=== PATIENT | male | born 1955 | race Caucasian/White ===

== ENCOUNTER 2023-09-07 12:20 | Outpatient (CLI) | payer MEDICARE, OTHER | END 2023-09-07 23:59 | disposition home or self-care (01) | LOC: MRI 12:20 | PROVIDERS: ATTEND Pediatrics Sports Medicine | DX: S76.312A Strain of muscle, fascia and tendon of the posterior muscle group at thigh level, left thigh, initial encounter (principal); M16.11 Unilateral primary osteoarthritis, right hip; M25.451 Effusion, right hip; M25.751 Osteophyte, right hip; M25.551 Pain in right hip; M46.1 Sacroiliitis, not elsewhere classified; N43.3 Hydrocele, unspecified; K57.30 Diverticulosis of large intestine without perforation or abscess without bleeding; D17.9 Benign lipomatous neoplasm, unspecified; X58.XXXA Exposure to other specified factors, initial encounter; Y93.89 Activity, other specified; Y92.89 Other specified places as the place of occurrence of the external cause; Y99.8 Other external cause status | CPT/HCPCS: 73721 ==